=== PATIENT | male | born 1955 | race Caucasian/White ===

== ENCOUNTER → 2019-11-27 | Outpatient (CLI) | payer BC ==
--- NOTE | 2019-11-27 11:03 | XR ---
EXAMINATION TYPE: XR chest 2V DATE OF EXAM: 11/27/2019 COMPARISON: 11/14/2019 HISTORY: Cough. Multiple rib fractures known from 11/18/2019 TECHNIQUE: Frontal and lateral views of the chest are obtained. FINDINGS: Trace right pleural effusion is seen with associated right basilar airspace disease, likely atelectasis. There is no pulmonary vascular congestion or pneumothorax seen. Flattening of the diaph ragms is seen relating to underlying COPD. The cardiac silhouette size is within normal limits. The p reviously seen right minimally displaced rib fractures of ribs 6 through 8 are better appreciated on the rib series. IMPRESSION: New trace right pleural effusion and associated right basilar airspace disease, probable atelectasis.
== END | disposition home or self-care (01) ==
LOC: RADXRYALE 10:37
PROVIDERS: ATTEND Physician Assistant Medical
DX: R06.02 Shortness of breath (principal); S22.41XS Multiple fractures of ribs, right side, sequela
CPT/HCPCS: 71046

== ENCOUNTER → 2019-12-10 | Outpatient (CLI) | payer BC ==
--- NOTE | 2019-12-10 11:04 | XR ---
EXAMINATION TYPE: XR chest 2V, XR ribs RT DATE OF EXAM: 12/10/2019 COMPARISON: Chest x-ray November 27, 2019. Chest x-ray and right rib x-ray November 18, 2019 HISTORY: Chest and right-sided rib pain TECHNIQUE: Frontal and lateral views of the chest are obtained. Frontal and oblique images of right- sided ribs. FINDINGS: There is persistent stable small right pleural effusion end associated patchy right basila r atelectasis. Patchy left basilar atelectasis. No pneumothorax seen bilaterally. Cardiac silhouette size stable and within normal limits with ectatic thoracic aorta. Redemonstration of displaced fractures involving the lateral right sixth through eighth ribs. No new fractures are seen. Alignment stable. IMPRESSION: Stable small right pleural effusion. Redemonstration of subacute displaced fractures inv olving right lateral sixth through eighth ribs. Alignment stable.
== END | disposition home or self-care (01) ==
LOC: RADXRYALE 10:19
PROVIDERS: ATTEND Physician Assistant Medical
DX: J90 Pleural effusion, not elsewhere classified (principal); S22.41XA Multiple fractures of ribs, right side, initial encounter for closed fracture
CPT/HCPCS: 71046

== ENCOUNTER → 2019-12-26 | Outpatient (CLI) | payer BC ==
--- NOTE | 2019-12-26 16:13 | XR ---
EXAMINATION TYPE: XR ribs RT w pa chest xray DATE OF EXAM: 12/26/2019 COMPARISON: NONE HISTORY: Pain TECHNIQUE: Single view of the chest right views of the ribs are submitted. FINDINGS: There is persistent right basilar pleural-parenchymal opacity which may reflect fluid and a telectatic lung. Previously described fractures are redemonstrated. Ribs 6 and 7 fractures demonstrat es complete callus formation. Right rib #8 fracture continues to be visible. No Evidence for pneumoth orax. Mediastinal structures are midline. IMPRESSION: As above
== END | disposition home or self-care (01) ==
LOC: RADXRYALE 15:43
PROVIDERS: ATTEND Physician Assistant Medical
DX: S22.41XG Multiple fractures of ribs, right side, subsequent encounter for fracture with delayed healing (principal)

== ENCOUNTER → 2020-02-04 | Outpatient (CLI) | payer BC ==
--- NOTE | 2020-02-04 14:57 | XR ---
EXAMINATION TYPE: XR ribs RT w pa chest xray DATE OF EXAM: 02/04/2020 COMPARISON: 12/26/2019 TECHNIQUE: PA and lateral views submitted. HISTORY: Pain FINDINGS: There are persistent displaced fractures involving the right sixth, seventh and eighth ribs. Small ri ght-sided pleural effusion and consolidation noted. Could not exclude a chronic appearing deformity o f the lateral margin of the right fifth rib. Left lung clear. Heart size stable. Ectasia the aorta. IMPRESSION: 1. Persistent displaced rib fractures with right-sided consolidation and pleural effusion unchanged f rom prior exam.
== END | disposition home or self-care (01) ==
LOC: RADXRYALE 14:35
PROVIDERS: ATTEND Physician Assistant Medical
DX: S22.41XG Multiple fractures of ribs, right side, subsequent encounter for fracture with delayed healing (principal); J90 Pleural effusion, not elsewhere classified; R07.81 Pleurodynia

== ENCOUNTER → 2020-02-14 | Outpatient (CLI) | payer BC ==
--- NOTE | 2020-02-14 17:16 | CT ---
EXAMINATION TYPE: CT chest w con DATE OF EXAM: 02/14/2020 COMPARISON: None HISTORY: unhealing rib fractures and cough CT DLP: 662.2 mGycm, Automated exposure control for dose reduction was used. CONTRAST: Performed injected with 100 mL of Isovue 300. TECHNIQUE: Axial images were obtained at 5 mm thick sections. Reconstructed images are reviewed on [facility] computer in the coronal plane. FINDINGS: Portion of the thyroid visualized is normal. There is a small right pleural effusion. Some minimal streak atelectasis in the right lower lobe at t diaphragm may be present. Lung garcia otherwise appear clear. No enlarged mediastinal or hilar adenopathy is evident. The ascending aorta diameter at the level o f the main pulmonary artery is 4.4 cm. The main pulmonary artery diameter at the bifurcation is 2.3 cm. Coronary artery calcification is present. Limited CT sections are obtained through the upper abdomen. Abdomen is essentially unremarkable. IMPRESSIONS: 1. Ascending thoracic aortic aneurysm measuring 4.4 cm AP dimension. 2. Minimal atelectasis along the right diaphragm. 3. Small right pleural effusion
== END | disposition home or self-care (01) ==
LOC: RADCTMAIN 15:47
PROVIDERS: ATTEND Family Medicine
DX: I71.2 Thoracic aortic aneurysm, without rupture (principal); J43.9 Emphysema, unspecified; J90 Pleural effusion, not elsewhere classified; R93.89 Abnormal findings on diagnostic imaging of other specified body structures
CPT/HCPCS: 71260; Q9967